=== PATIENT | female | born 1945 | race Caucasian/White ===

== ENCOUNTER 2016-12-28 21:23 | Emergency (ER) | payer MEDICARE, OTHER ==
[~2016-12-28 21:23] MED LIST: ASPIRIN CHEWABL81 MG PO; COLACE 100MG C100 MG PO; COREG 3.125M3.125 MG PO; DITROPAN 5 MG TA5 MG PO; DURAGESIC 75 MCG1 EA EXT; ENDOCET 10-3251 EACH PO; FLUOXETINE HCL20 MG PO; INVANZ 1 GM VIAL1 GM IV; INVANZ1 GM IV; KLONOPIN TAB 00.5 MG PO; MOVANTIK25 MG PO; OMEPRAZOLE20 MG PO; PLAVIX 75 MG TA75 MG PO; REMERON45 MG PO; ZANTAC 150 MG150 MG PO
[2016-12-29 00:50] LABS: HEMOGLOBIN 11.1 gm/dl (12.3-15.3); RED BLOOD COUNT 4.07 M/UL (4.00-5.10); WHITE BLOOD COUNT 6.9 K/UL (4.5-11.0)
[2016-12-29 01:13] LABS: BUN/CREATININE RATIO 18 (0-10)
== END 2016-12-29 08:00 | disposition home or self-care (01) ==
LOC: ER1 21:23
PROVIDERS: Physician Assistant
DX: R07.89 Other chest pain (principal); G89.29 Other chronic pain; E11.9 Type 2 diabetes mellitus without complications; M19.90 Unspecified osteoarthritis, unspecified site; Z79.891 Long term (current) use of opiate analgesic
CPT/HCPCS: 36415; 71010; 80053; 81001; 82550; 82553; 83874; 84484; 85025; 87086; 93005; 96365; 96375; 99285; J0696; J2270; J7050